=== PATIENT | male | born 1945 | race Caucasian/White ===

== ENCOUNTER 2016-08-12 16:46 | Observation (INO) | payer OTHER ==
[2016-08-12] MEDS ORDERED: NS 1,000 ML IV ONE ×2 (16:54→17:03)
--- NOTE | 2016-08-12 16:54 | EDPHY ---
H & P Stated Complaint: Abd pain,diarrhea x 6 days;has been around other people w/ same sxs HPI/ROS: HPI CHIEF COMPLAINT: Cough, upper respiratory tract infection, diarrhea, generalized weakness, dehydration HISTORY OF PRESENT ILLNESS: This patient very pleasant 71-year-old male significant past medical history for CABG, presents to the emergency room with 2 -3 days of generalized weakness, fatigue, dry cough with whitish sputum, diarrhea and feeling dehydrated and fatigued. Patient tells me that he lives in [place] been traveling for the past 9-10 days. His daughter lives in [place] and is visiting her currently. He has been very tired he has been having watery diarrhea nonbloody with upper respiratory tract infection. He states that he feels run down and fatigued. Also tells me feels dehydrated. 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 He flew to [place] 2 days ago. He is now here for few days. Decided come the emergency room doing as he is feeling run down. He denies chest pain or shortness of breath. Does endorse cough productive, generalized weakness, fatigue, diarrhea. Past Medical History: Colon cancer, esophageal obstruction, CABG Past Surgical History: CABG Social History: denies daily use of drugs alcohol tobacco products, resides in [place], visiting daughter Aleida Family History: Noncontributory ROS REVIEW OF SYSTEMS: A comprehensive 10 point review of systems is otherwise negative aside from elements mentioned in the history of present illness. Exam Constitutional appears well nontoxic, triage nursing summary reviewed, vital signs reviewed, awake/alert. vital signs reviewed and stable Eyes normal conjunctivae and sclera, EOMI, PERRLA. HENT normal inspection, atraumatic, moist mucus membranes, no epistaxis, neck supple/ no meningismus, no raccoon eyes. Respiratory clear to auscultation bilaterally, normal breath sounds, no respiratory distress, no wheezing. Cardiovascular rate normal, regular rhythm, no murmur, no edema, distal pulses normal. Gastrointestinal soft, non-tender, no rebound, no guarding, normal bowel sounds, no distension, no pulsatile mass. Genitourinary no CVA tenderness. Musculoskeletal no midline vertebral tenderness, full range of motion, no calf swelling, no tenderness of extremities, no meningismus, good pulses, neurovascularly intact. Skin pink, warm, & dry, no rash, skin atraumatic. Neurologic awake, alert and oriented x 3, AAOx3, moves all 4 extremities equally, motor intact, sensory intact, CN II-XII intact, normal cerebellar, normal vision, normal speech. Psychiatric normal mood/affect. Heme/Lymph/Immune no lymphadenopathy. Differential Diagnosis: Includes but is not limited to in a particular order, electrolyte disturbance, dehydration, GI illness, viral syndrome, upper respiratory tract infection, viral pneumonia, bacterial pneumonia, doubt ACS Medical Decision Making: Plan for patient IV establishment IV fluid bolus, chest x-ray two view to rule pneumonia, check electrolytes, EKG and troponin. Re-evaluation: EKG interpretation by me on record in [employer] system. Impression time of EKG 1716: This is sinus rhythm rate of 65, Q-waves noted to 3 AVF, otherwise unremarkable nonischemic EKG no ST elevation ST depression T-wave abnormalities. No old EKG to compare to. 1841: Re-evaluation at this time patient resting comfortably. Blood work has been reviewed, x-ray reviewed no pneumonia. Blood work reassuring. No evidence of severe electrolyte disturbance severe dehydration or infection. Will treat patient for upper respiratory tract infection. Placed on azithromycin, guaifenesin albuterol. Understands return emergency room while in [place] if he is worse. Follow up his primary care doctor in [place]. Source: Patient - Personal History Current Tetanus Diphtheria and Acellular Pertussis (TDAP): Yes - Medical/Surgical History Other PMH: colon ca - Social History Smoking Status: Never smoked Constitutional: Initial Vital Signs Temperature (C) 36.4 C 08/12/16 16:47 Heart Rate 71 08/12/16 16:47 Respiratory Rate 16 08/12/16 16:47 Blood Pressure 103/71 08/12/16 16:47 O2 Sat (%) 97 08/12/16 16:47 O2 Delivery Mode Room Air O2 (L/minute) 2 Allergies/Adverse Reactions: No Known Allergies Allergy (Unverified 08/12/16 16:53) Home Medications: Medication Instructions Recorded AZITHROMYCIN [Z-PACK] 250 mg PO DAILY #6 tab 08/12/16 Albuterol [Proventil Inhaler HFA 1 - 2 puffs IH Q4H #1 mdi 08/12/16 (*)] Aspirin [Aspirin 325 mg (*)] 325 mg PO DAILY 04/19/17 Atorvastatin Calcium [Lipitor 20 20 mg PO DAILY 08/12/16 mg (*)] Guaifenesin [Guaifenesin ER] 600 mg PO BID #14 tab.er.12h 08/12/16 Omeprazole [Prilosec 20 mg] 20 mg PO DAILY 08/12/16 Medical Decision Making - Diagnostics Imaging Results: Imaging Impressions Chest X-Ray 08/12/16 17:03 Impression: 1. Clear lungs. No pneumonia or failure. 2. Stigmata of previous open-heart surgery. - Data Points Laboratory Results: Laboratory Results 08/12/16 17:25 08/12/16 17:25 08/12/16 08/12/16 08/12/16 17:25 17:25 17:25 WBC 3.44 10^3/uL L 10^3/uL (3.80-9.50) RBC 5.36 10^6/uL 10^6/uL (4.40-6.38) Hgb 16.2 g/dL g/dL (13.7-17.5) Hct 47.0 % % (40.0-51.0) MCV 87.7 fL fL (81.5-99.8) MCH 30.2 pg pg (27.9-34.1) MCHC 34.5 g/dL g/dL (32.4-36.7) RDW 13.2 % % (11.5-15.2) Plt Count 115 10^3/uL L 10^3/uL (150-400) MPV 11.4 fL fL (8.7-11.7) Neut % (Auto) 55.0 % % (39.3-74.2) Lymph % (Auto) 26.7 % % (15.0-45.0) [place] % (Auto) 12.5 % % (4.5-13.0) Eos % (Auto) 4.9 % % (0.6-7.6) Baso % (Auto) 0.9 % % (0.3-1.7) Nucleat RBC Rel Count 0.0 % % (0.0-0.2) Absolute Neuts (auto) 1.89 10^3/uL 10^3/uL (1.70-6.50) Absolute Lymphs (auto) 0.92 10^3/uL L 10^3/uL (1.00-3.00) Absolute Monos (auto) 0.43 10^3/uL 10^3/uL (0.30-0.80) Absolute Eos (auto) 0.17 10^3/uL 10^3/uL (0.03-0.40) Absolute Basos (auto) 0.03 10^3/uL 10^3/uL (0.02-0.10) Absolute Nucleated RBC 0.00 10^3/uL 10^3/uL (0-0.01) Immature Gran % 0.0 % % (0.0-1.1) Immature Gran # 0.00 10^3/uL 10^3/uL (0.00-0.10) VBG Lactic Acid 1.2 mmol/L mmol/L (0.7-2.1) Sodium 136 mEq/L mEq/L (134-144) Potassium 4.6 mEq/L mEq/L (3.5-5.2) Chloride 102 mEq/L mEq/L (97-110) Carbon Dioxide 24 mEq/l mEq/l (22-31) Anion Gap 10 mEq/L mEq/L (8-16) BUN 19 mg/dL mg/dL (7-23) Creatinine 1.2 mg/dL mg/dL (0.7-1.3) Estimated GFR 60 Glucose 113 mg/dL H mg/dL (70-100) Calcium 8.6 mg/dL mg/dL (8.5-10.4) Total Bilirubin 0.9 mg/dL mg/dL (0.1-1.4) Conjugated Bilirubin 0.5 mg/dL mg/dL (0.0-0.5) Unconjugated Bilirubin 0.4 mg/dL mg/dL (0.0-1.1) AST 50 IU/L IU/L (17-59) ALT 46 IU/L IU/L (21-72) Alkaline Phosphatase 71 IU/L IU/L (38-126) Troponin I 0.028 ng/mL ng/mL (0-0.034) Total Protein 6.9 g/dL g/dL (6.3-8.2) Albumin 3.9 g/dL g/dL (3.5-5.0) Lipase 385.0 IU/L H IU/L (23-300) Medications Given: Discontinued Medications Albuterol/Ipratropium (Duoneb) 3 ml IH EDNOW ONE Stop: 08/12/16 18:20 Last Admin: 08/12/16 18:27 Dose: 3 ml Sodium Chloride (Ns) 1,000 mls @ 0 mls/hr IV ONCE ONE PRN Reason: Wide Open Stop: 08/12/16 16:55 Last Admin: 08/12/16 17:42 Dose: 1,000 mls Sodium Chloride (Ns) 1,000 mls @ 0 mls/hr IV ONCE ONE PRN Reason: Wide Open Stop: 08/12/16 17:04 Last Admin: 08/12/16 18:11 Dose: 1,000 mls Departure - Departure Disposition: Home, Routine, Self-Care Clinical Impression: Upper respiratory tract infection Qualifiers: URI type: unspecified URI Qualified Code(s): J06.9 - Acute upper respiratory infection, unspecified Condition: Good Instructions: Upper Respiratory Infection (ED) Additional Instructions: 1. Stay well-hydrated drink lots of fluids. 2. return emergency room if you have worsening symptoms questions or concerns. Referrals: FOXWORTHY,UNKNOWN [Other] - As per Instructions Prescriptions: Albuterol [Proventil Inhaler HFA (*)] 1 - 2 puffs IH Q4H #1 mdi AZITHROMYCIN [Z-PACK] 250 mg PO DAILY #6 tab Guaifenesin [Guaifenesin ER] 600 mg PO BID #14 tab.er.12h
--- NOTE | 2016-08-12 17:19 | CPEKG ---
Heart Rate: 65 RR Interval: 923 QRSD Interval: 84 QT Interval: 416 QTC Interval: 433 QRS [place]: -23 T Wave [place]: 20 EKG Severity - ABNORMAL ECG - EKG Impression: ACCELERATED JUNCTIONAL ESCAPE RHYTHM EKG Impression: INFERIOR INFARCT, AGE INDETERMINATE Electronically Signed By: Codey Kearns 12-Aug-2016 22:24:26
[2016-08-12 17:48] LABS: ADD DIFF? NO; ADD MORPH? NO; ADD SCAN? YES; FRAGMENT RBC FLAG 10 (0-99); HEMOGLOBIN 16.2 g/dL (13.7-17.5); LEFT SHIFT FLG 0 (0-99); LIPEMIA HEMOLYSIS FLAG 90 (0-99); MEAN CELL HEMOGLOBIN 30.2 pg (27.9-34.1); MEAN CELL HEMOGLOBIN CONCENTR. 34.5 g/dL (32.4-36.7); MEAN CELL VOLUME 87.7 fL (81.5-99.8); MEAN PLATELET VOLUME 11.4 fL (8.7-11.7); PLATELET CLUMPS FLAG 0 (0-99); PLATELET COUNT 115 10^3/uL (150-400); RED BLOOD CELL COUNT 5.36 10^6/uL (4.40-6.38); RED CELL DISTRIBUTION WIDTH 13.2 % (11.5-15.2)
[2016-08-12 17:57] LABS: ALANINE AMINOTRANSFERASE 46 IU/L (21-72); ALBUMIN 3.9 g/dL (3.5-5.0); ALKALINE PHOSPHATASE 71 IU/L (38-126); ANION GAP 10 mEq/L (8-16); ASPARTATE AMINOTRANSFERASE 50 IU/L (17-59); BILIRUBIN,TOTAL 0.9 mg/dL (0.1-1.4); BILIRUBIN-CONJUGATED 0.5 mg/dL (0.0-0.5); BILIRUBIN-UNCONJUGATED 0.4 mg/dL (0.0-1.1); CALCIUM 8.6 mg/dL (8.5-10.4); CARBON DIOXIDE 24 mEq/l (22-31); CHLORIDE 102 mEq/L (97-110); CREATININE 1.2 mg/dL (0.7-1.3); GLOMERULAR FILTRATION RATE 60; GLUCOSE 113 mg/dL (70-100); POTASSIUM 4.6 mEq/L (3.5-5.2); SODIUM 136 mEq/L (134-144); TOTAL PROTEIN 6.9 g/dL (6.3-8.2)
[2016-08-12 18:05] LABS: ATYPICAL LYMPHOCYTE FLAG 180 (0-99)
[2016-08-12 18:08] LABS: TROPONIN I 0.028 ng/mL (0-0.034)
[2016-08-12] MEDS ORDERED: IPRATROPIUM/ALBUTEROL 3 ML DEYVIAL IH ONE (18:19)
[2016-08-12 18:38] LABS: SCAN NEGATIVE
[2016-08-12] MEDS ORDERED: ALBUTEROL 3 ML DEYVIAL IH ONE (18:49)
[2016-08-12] MEDS ORDERED: ALBUTEROL 3 ML DEYVIAL ONE (18:49)
[2016-08-12] MEDS ORDERED: IOPAMIDOL (ISOVUE 370) 100 ML BTL IV ONE (19:43)
[2016-08-12] MEDS ORDERED: methylPREDNISolone SOD SUCC 125 MG/2 ML VIAL IVP ONE ×2 (21:10→21:11)
[2016-08-12] MEDS ORDERED: AZITHROMYCIN IV 500 MG in D5W 250 ML IV ONE (21:11)
[2016-08-12] MEDS ORDERED: ACETAMINOPHEN 325 MG TAB PO PRN (22:43)
[2016-08-12] MEDS ORDERED: ONDANSETRON 4 MG/2 ML VIAL IVP PRN (22:43)
[2016-08-12] MEDS ORDERED: HYDROmorphONE/DILAUDID 1 MG/ML SYR IVP PRN (22:43)
[2016-08-12] MEDS ORDERED: ALBUTEROL 3 ML DEYVIAL IH PRN (22:43)
[2016-08-12] MEDS ORDERED: ONDANSETRON DISINTEGRATING 4 MG TAB PO PRN (22:43)
[2016-08-12] MEDS ORDERED: NS 1,000 ML IV SCH (22:45)
--- NOTE | 2016-08-12 23:56 | PDGENHP ---
History and Physical - Chief Complaint fatigue, shortness of breath - History of Present Illness Patient is a 71 year old male with HTN, HLD, GERD, CAD s/p CABG and history of colon cancer who presents to the ED with complaint of generalized fatigue and shortness of breath. Patient states he has been traveling for the past 2 weeks; he lives in [place], traveled to the initially, was then in [place] for the past 5 days cleaning out his RV, then flew into [place] yesterday to visit his daughter. For the past 5-7 days of his traveling he has experienced nasal congestion, sneezing and dry coughm as well as lack of appetite and decreased PO intake during this time. About 2-3 days ago he had several episodes of diarrhea, nonbloody, no melena, which seems to have resolved. He arrived in [place] yesterday evening and throughout the day today has felt a generalized weakness and fatigue. Today while walking he also began to feel short of breath , which prompted him to come to the ED for further evaluation. He denies any associated fever, chills, headache, chest pain, palpitations, wheezing, abdominal pain, nausea or vomiting. On arrival to the ED, patient was afebrile, hemodynamically stable, but became hypoxic on room air. Labs, including CBC, lactic acid, bmp and troponin, were normal. CXR did not show any obvious infiltrate. CT chest was then obtained, was negative for acute PE or any abnormalities. Patient's O2 sats did not improve with nebs or steroids, so he was admitted for further evaluation. History Information - Allergies/Home Medication List Allergies/Adverse Reactions: No Known Allergies Allergy (Unverified 08/12/16 16:53) Home Medications: Aspirin [Aspirin 325 mg (*)] 325 mg PO DAILY 08/12/16 [Last Taken Unknown] Atorvastatin Calcium [Lipitor 20 mg (*)] 20 mg PO DAILY 08/12/16 [Last Taken Unknown] Omeprazole [Prilosec 20 mg] 20 mg PO DAILY 08/12/16 [Last Taken Unknown] I have personally reviewed and updated: family history, medical history, social history, surgical history - Past Medical History Additional medical history: CAD s/p 4-vessel CABG 2013. Hypertension. Hyperlipidemia. GERD. h/o esophageal stricture, s/p dilation. h/o colon cancer s/p resection and chemo, in remission - Surgical History Additional surgical history: CABG. colon cancer resection. esophageal stricture dilation - Family History Positive for: non-pertinent - Social History Smoking Status: Never smoked Alcohol Use: Occasionally Drug Use: None Additional social history: Patient originally from [place], now lives in [place]. Daughter lives in [place]. self employed, still working. Review of Systems ROS: 10pt was reviewed & negative except for what was stated in HPI & below Physical Exam Temp Pulse Resp BP Pulse Ox 37.0 C 58 L 14 102/56 L 90 L 08/12/16 23:09 08/12/16 23:09 08/12/16 23:09 08/12/16 23:09 08/12/16 23:09 O2 (L/minute) 2 Constitutional: no apparent distress, appears nourished, not in pain Eyes: PERRL, anicteric sclera, EOMI Ears, Nose, Mouth, Throat: moist mucous membranes, hearing normal, ears appear normal, no oral mucosal ulcers Cardiovascular: regular rate and rhythym, no murmur, rub, or gallop, pulses symmetric bilaterally, No JVD, No edema Peripheral Pulses: 2+: dorsalis-pedis (R), dorsalis-pedis (L) Respiratory: no respiratory distress, no rales or rhonchi, clear to auscultation Gastrointestinal: normoactive bowel sounds, soft, non-tender abdomen, no palpable masses, No guarding, No rebound, No distension Genitourinary: no bladder fullness, no bladder tenderness Skin: warm, normal color, no rashes or abrasions, no fluctuance, no induration, No mottled Musculoskeletal: full muscle strength, no muscle tenderness, normal joint ROM, no joint effusions Neurologic: AAOx3, sensation intact bilaterally, CN II-XII Intact, No weakness, No numbness, No facial droop Psychiatric: interacting appropriately, not anxious, not encephalopathic, thought process linear Lab Data & Imaging Review 08/12/16 17:25 08/12/16 17:25 WBC 3.44 10^3/uL (3.80-9.50) L 08/12/16 17:25 RBC 5.36 10^6/uL (4.40-6.38) 08/12/16 17:25 Hgb 16.2 g/dL (13.7-17.5) 08/12/16 17:25 Hct 47.0 % (40.0-51.0) 08/12/16: MCV 87.7 fL (81.5-99.8) 08/12/16: MCH 30.2 pg (27.9-34.1) 08/12/16: MCHC 34.5 g/dL (32.4-36.7) 08/12/16: RDW 13.2 % (11.5-15.2) 08/12/16: Plt Count 115 10^3/uL (150-400) L 08/12/16: MPV 11.4 fL (8.7-11.7) 08/12/16: Neut % (Auto) 55.0 % (39.3-74.2) 08/12/16: Lymph % (Auto) 26.7 % (15.0-45.0) 08/12/16: [place] % (Auto) 12.5 % (4.5-13.0) 08/12/16: Eos % (Auto) 4.9 % (0.6-7.6) 08/12/16: Baso % (Auto) 0.9 % (0.3-1.7) 08/12/16: Nucleat RBC Rel Count 0.0 % (0.0-0.2) 08/12/16: Absolute Neuts (auto) 1.89 10^3/uL (1.70-6.50) 08/12/16 17: Absolute Lymphs (auto) 0.92 10^3/uL (1.00-3.00) L 08/12/16: Absolute Monos (auto) 0.43 10^3/uL (0.30-0.80) 08/12/16: Absolute Eos (auto) 0.17 10^3/uL (0.03-0.40) 08/12/16 17: Absolute Basos (auto) 0.03 10^3/uL (0.02-0.10) 08/12/16: Absolute Nucleated RBC 0.00 10^3/uL (0-0.01) 04/19/17 17:25 Immature Gran % 0.0 % (0.0-1.1) 08/12/16 17:25 Immature Gran # 0.00 10^3/uL (0.00-0.10) 08/12/16 17:25 VBG Lactic Acid 1.2 mmol/L (0.7-2.1) 08/12/16 17:25 Sodium 136 mEq/L (134-144) 08/12/16 17:25 Potassium 4.6 mEq/L (3.5-5.2) 08/12/16 17:25 Chloride 102 mEq/L (97-110) 08/12/16 17:25 Carbon Dioxide 24 mEq/l (22-31) 08/12/16 17:25 Anion Gap 10 mEq/L (8-16) 08/12/16 17:25 BUN 19 mg/dL (7-23) 08/12/16 17:25 Creatinine 1.2 mg/dL (0.7-1.3) 08/12/16 17:25 Estimated GFR 60 08/12/16 17:25 Glucose 113 mg/dL (70-100) H 08/12/16 17:25 Calcium 8.6 mg/dL (8.5-10.4) 08/12/16 17:25 Magnesium 2.1 mg/dL (1.6-2.3) 08/12/16 17:25 Total Bilirubin 0.9 mg/dL (0.1-1.4) 08/12/16 17:25 Conjugated Bilirubin 0.5 mg/dL (0.0-0.5) 08/12/16 17:25 Unconjugated Bilirubin 0.4 mg/dL (0.0-1.1) 08/12/16 17:25 AST 50 IU/L (17-59) 08/12/16 17:25 ALT 46 IU/L (21-72) 08/12/16 17:25 Alkaline Phosphatase 71 IU/L (38-126) 08/12/16 17:25 Troponin I 0.028 ng/mL (0-0.034) 08/12/16 17:25 Total Protein 6.9 g/dL (6.3-8.2) 08/12/16 17:25 Albumin 3.9 g/dL (3.5-5.0) 08/12/16 17:25 Lipase 385.0 IU/L (23-300) H 08/12/16 17:25 Visualized and Interpreted Chest x-ray results: Yes Chest X-Ray results: no infiltrate, normal Visualized and Interpreted imaging results: Yes Interpretation: CT chest: no acute abnormalities noted Visualized and Interpreted EKG results: Yes EKG additional interpertation: inferior Q in II, III, avf; no significant ST/T wave changes Assessment & Plan Assessment: Patient is a 71 year old male with CAD, HTN, HLD, Gerd who presents to the ED with 5 days of URI type symptoms, shortness of breath and generalized fatigue. ED work up is largely nonrevealing, except for persistent hypoxia. Plan: # acute hypoxic respiratory failure Etiology appears to be related to acute URI and new elevation exposure (patient lives in [place]). CXR and CT angio have ruled out acute pneumonia, effusions, pulmonary embolism. Will rule out ACS/cardiac etiology with monitoring of serial cardiac enzymes, EKGs and will check TTE. He was given steroids/nebs in ED, but patient has no history of COPD, asthma or smoking, and has no wheezing on my exam, so will hold further steroids. - cont supplemental O2 prn - f/u TTE - cont nebs prn # URI Patient describes about 5-7 days of nasal congestion, cough with clear sputum, appears consistent with viral URI. Chest imaging also negative for any infiltrate. Given this and lack of fever, leukocytosis, will hold off on antibiotics, check rapid flu swab and treat supportively with antitussives prn. # history of CAD, abnormal EKG EKG appears to be junctional rhythm, at a stable rate, stable BP. Also shows inferior q waves, likely related to patient's previously reported CAD. He denies any symptoms of dizziness, presyncope, syncope, chest pain or palpitations. Initial troponin is negative, will continue to trend and monitor EKGs, and check TTE in am. Will continue home statin, aspirin. # GERD Stable, cont PPI. # dispo: admit to observation for evaluation of hypoxia # gen: cardiac diet DVT ppx: lovenox, if staying beyond 48 hrs Full code
[2016-08-13] MEDS ORDERED: BENZONATATE 100 MG CAP PO PRN (01:47)
[2016-08-13] MEDS: IPRATROPIUM/ALBUTEROL 3 ML DEYVIAL IH SCH ×2 (06:01→12:09)
[2016-08-13 07:25] LABS: ADD DIFF? NO; ADD MORPH? NO; ADD SCAN? YES; FRAGMENT RBC FLAG 0 (0-99); HEMATOCRIT 41.8 % (40.0-51.0); HEMOGLOBIN 14.1 g/dL (13.7-17.5); LEFT SHIFT FLG 0 (0-99); LIPEMIA HEMOLYSIS FLAG 80 (0-99); MEAN CELL HEMOGLOBIN CONCENTR. 33.7 g/dL (32.4-36.7); MEAN CELL VOLUME 88.9 fL (81.5-99.8); MEAN PLATELET VOLUME 11.3 fL (8.7-11.7); PLATELET CLUMPS FLAG 0 (0-99); PLATELET COUNT 89 10^3/uL (150-400); RED CELL DISTRIBUTION WIDTH 13.2 % (11.5-15.2)
[2016-08-13 07:29] LABS: ATYPICAL LYMPHOCYTE FLAG 300 (0-99)
[2016-08-13 07:30] LABS: PROTIME(PATIENT) 13.1 SEC (12.0-15.0)
[2016-08-13 07:31] LABS: APTT 30.4 SEC (23.0-38.0)
[2016-08-13 07:43] LABS: ANION GAP 7 mEq/L (8-16); CALCIUM 7.5 mg/dL (8.5-10.4); CARBON DIOXIDE 22 mEq/l (22-31); CHLORIDE 109 mEq/L (97-110); CREATININE 0.9 mg/dL (0.7-1.3); GLOMERULAR FILTRATION RATE > 60; GLUCOSE 194 mg/dL (70-100); POTASSIUM 5.1 mEq/L (3.5-5.2); SODIUM 138 mEq/L (134-144)
[2016-08-13 07:48] VITALS: RESP 16
[2016-08-13 07:55] LABS: TROPONIN I 0.031 ng/mL (0-0.034)
[2016-08-13] MEDS ORDERED: OSELTAMIVIR PHOSPHATE 75 MG CAP PO SCH (08:00)
--- NOTE | 2016-08-13 08:39 | HOSPPROG ---
Hospitalist Progress Note Assessment/Plan: Mr Vazquez is a 71 year old male with CAD, HTN, HLD, Gerd who presents to the ED with 5 days of URI type symptoms, shortness of breath and generalized fatigue. #Influenza B Tamiflu initiated #acute hypoxemic respiratory failure due to the above # URI week of nasal congestion chest xray shows no infiltrate no abx indicated at this time cont supportive treatment # history of CAD, abnormal EKG evaluated 12 lead myself/ shows a junctional rhythm w inferior q waves trops are negative echo pending #Hyperglycemia given steroids in the ER # GERD Stable, cont PPI. # dispo: dc today after I review echo results. Subjective: Anila is feeling well/ anxious to be discharged. Objective: Vital Signs Temp Pulse Resp BP Pulse Ox 36.4 C 45 L 16 102/57 L 91 L 08/13/16 07:46 08/13/16 07:46 08/13/16 07:46 08/13/16 07:46 08/13/16 07:46 Laboratory Results 08/13/16 07:10 08/12/16 08/13/16 08/14/16 05:59 05:59 05:59 Intake Total 1255 Balance 1255 PT 13.1 SEC (12.0-15.0) 08/13/16 07:10 INR 1.00 (0.83-1.16) 08/13/16 07:10 - Physical Exam Constitutional: no apparent distress, appears nourished, not in pain Eyes: PERRL Ears, Nose, Mouth, Throat: hearing normal Cardiovascular: regular rate and rhythym Respiratory: no respiratory distress, no rales or rhonchi, clear to auscultation Gastrointestinal: normoactive bowel sounds Skin: warm, normal color Musculoskeletal: full muscle strength Neurologic: AAOx3 Psychiatric: interacting appropriately, not anxious ICD10 Worksheet Patient Problems: Problems Problem Status Onset Upper respiratory tract infection Acute
[2016-08-13 08:40] LABS: COLOR YELLOW; LEUKOCYTE ESTERASE,URINE NEGATIVE (NEGATIVE); NITRITE,URINE NEGATIVE (NEGATIVE)
[2016-08-13 08:42] LABS: MUCUS TRACE /lpf (NONE-1+)
[2016-08-13 08:43] LABS: RBC,URINE NONE SEEN /hpf (0-3)
[2016-08-13] MEDS ORDERED: ENOXAPARIN 40 MG/0.4 ML SYR SC SCH (09:00)
[2016-08-13] MEDS ORDERED: PANTOPRAZOLE SODIUM 40 MG TAB PO SCH (09:00)
[2016-08-13] MEDS ORDERED: ASPIRIN 325 MG TAB PO SCH (09:00)
[2016-08-13] MEDS ORDERED: ATORVASTATIN CALCIUM 20 MG TAB PO SCH (09:00)
[2016-08-13 09:05] LABS: SCAN NEGATIVE
--- NOTE | 2016-08-13 09:07 | CPEKG ---
Heart Rate: 37 RR Interval: 1622 P-R Interval: 180 QRSD Interval: 90 QT Interval: 540 QTC Interval: 424 P [place]: 42 QRS [place]: 17 T Wave [place]: 1 EKG Severity - ABNORMAL ECG - EKG Impression: SINUS BRADYCARDIA EKG Impression: PROBABLE LEFT ATRIAL ABNORMALITY EKG Impression: PROBABLE INFERIOR INFARCT, AGE INDETERMINATE Electronically Signed By: Benjamin Matamoros 13-Aug-2016 18:09:22
[2016-08-13 12:01] VITALS: BP 108/62; PULSE 39; TEMP 97.8; O2SAT 91
--- NOTE | 2016-08-13 13:52 | GDS ---
[f rep st] DISCHARGE SUMMARY DISCHARGE DIAGNOSES: 1. Influenza B. 2. Acute hypoxemic respiratory failure. 3. Upper respiratory infection. 4. History of coronary artery disease, abnormal EKG. 5. Hyperglycemia. 6. Gastroesophageal reflux disease. BRIEF HISTORY: The patient is a very nice 71-year-old male with a history of hypertension, hyperlipidemia, GERD and coronary artery disease, status post coronary artery bypass grafting with a history of colon cancer presented to the ER with complaints of generalized fatigue and shortness of breath. He had been traveling for the past 2 weeks and lives in the [facility]. In the ER, he was noted to be afebrile, hemodynamically stable and became hypoxic on room air. He had a CT of his chest which was obtained, which was negative for acute PE or any abnormalities. His oxygen level improved during his stay. Today, he is on room air and feeling well. HOSPITAL COURSE: 1. Influenza B. He was initiated on Tamiflu. I suspect he already had the flu , is getting over it. 2. Acute hypoxemic respiratory failure due to the above. Resolved. 3. Upper respiratory infection. This is likely viral in the setting of a low white blood cell count. Had a week of nasal congestion. Chest x-ray shows no infiltrate. No antibiotics are indicated at this time. 4. History of coronary artery disease, abnormal EKG. I reviewed his 1st EKG which showed a junctional rhythm with Q-waves. His troponin are negative. Second EKG shows sinus bradycardia. The gentleman is quite athletic, he prefers to follow up with his doctor in the [facility]. Echocardiogram was offered but he will get this done with his doctor. 5. Hyperglycemia. This is secondary to steroids given in the ER. 6. GERD. Continued PPI. PENDING LABS AND TESTS: None. CONDITION AT DISCHARGE: Stable. Blood pressure is 108/62, heart rate is 40, respiratory rate is 16, O2 sats on room air are 91%, temperature is 36.6 Celsius. MEDICATIONS AT DISCHARGE: Please see the EMR. DISCHARGE INSTRUCTIONS: 1. Return to the ER if he has any chest pain or continues to have shortness of breath. 2. Take Tamiflu as prescribed. /[id number]/MODL MTDD
[2016-08-14] MEDS ORDERED: ATORVASTATIN CALCIUM 40 MG TAB PO SCH (09:00)
[2016-08-14] MEDS ORDERED: LISINOPRIL 10 MG TAB PO SCH (09:00)
[2016-08-14] MEDS ORDERED: Herbals/Supplements -Info Only PO SCH (09:00)
== END 2016-08-13 13:20 | disposition home or self-care (01) ==
LOC: INTOOBSV 21:49 → F3E 22:57
PROVIDERS: ADMIT Hospitalist; ATTEND Family Medicine
DX: J10.1 Influenza due to other identified influenza virus with other respiratory manifestations (principal); J96.01 Acute respiratory failure with hypoxia; K21.9 Gastro-esophageal reflux disease without esophagitis; Z95.1 Presence of aortocoronary bypass graft
CPT/HCPCS: 71020; 71275; 93005; 96361; 96365; 96375; 99285; G0378; J0456; J1650; Q9967